=== PATIENT | male | born 1955 | race Two or more races ===

== ENCOUNTER 2024-02-19 09:45 | Outpatient (OUT) | payer BC, SELFPAY ==
--- NOTE | 2024-02-19 | XR_ITS ---
[address] [address] Patient Name: CIARA HAMPTON MRN: [id number] date: 1955 Sex: M Assigned Patient Location: Current Patient Location: Accession/Order Number: [id number] Exam Date: 02/19/2024 10:20 Report Date: 02/19/2024 11:36 At the request of: CINTHIA JOE Procedure: XR ankle ROBERTO min 3V EXAMINATION: XR ankle ROBERTO min 3V, XR foot ROBERTO min 3V HISTORY: BILATERAL ANKLE PAIN COMPARISON: 01/24/2023 FINDINGS: RIGHT FINDINGS: BONES: No acute fracture or dislocation. Corticated bone fragment inferior to the lateral malleolus, remote injury. Prominent os trigonum. Mild enthesopathic spurring plantar calcaneus. Mild degenerative changes of the midfoot with marginal osteophyte formation SOFT TISSUES: Negative. No visible soft tissue swelling. OTHER: Negative. 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 Severe degenerative changes of the midfoot and hindfoot with pes planus. Plantar displacement of the talus in relation to the calcaneus. Bony remodeling. Heterotopic ossification along the posterior joint space. SOFT TISSUES: Extensive soft tissue swelling OTHER: Negative. 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
--- NOTE | 2024-02-19 | XR_ITS ---
[address] [address] Patient Name: CIARA HAMPTON MRN: [id number] date: 1955 Sex: M Assigned Patient Location: Current Patient Location: Accession/Order Number: [id number] Exam Date: 02/19/2024 10:20 Report Date: 02/19/2024 11:36 At the request of: CINTHIA JOE Procedure: XR foot ROBERTO min 3V EXAMINATION: XR ankle ROBERTO min 3V, XR foot ROBERTO min 3V HISTORY: BILATERAL ANKLE PAIN COMPARISON: 01/24/2023 FINDINGS: RIGHT FINDINGS: BONES: No acute fracture or dislocation. Corticated bone fragment inferior to the lateral malleolus, remote injury. Prominent os trigonum. Mild enthesopathic spurring plantar calcaneus. Mild degenerative changes of the midfoot with marginal osteophyte formation SOFT TISSUES: Negative. No visible soft tissue swelling. OTHER: Negative. 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 Severe degenerative changes of the midfoot and hindfoot with pes planus. Plantar displacement of the talus in relation to the calcaneus. Bony remodeling. Heterotopic ossification along the posterior joint space. SOFT TISSUES: Extensive soft tissue swelling OTHER: Negative. 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
== END 2024-02-19 09:46 | disposition home or self-care (01) ==
LOC: WC 09:45 → EC 10:12
PROVIDERS: Visit Provider Podiatrist Foot & Ankle Surgery
DX: M25.571 Pain in right ankle and joints of right foot (principal); M25.572 Pain in left ankle and joints of left foot
CPT/HCPCS: 73610; 73630

== ENCOUNTER 2024-02-25 12:58 | Outpatient (OUT) | payer BC, SELFPAY ==
--- NOTE | 2024-02-25 13:17 | CT_ITS ---
[address] [address] Patient Name: CIARA HAMPTON MRN: [id number] date: 1955 Sex: M Assigned Patient Location: CT Current Patient Location: CT Accession/Order Number: [id number] Exam Date: 02/25/2024 13:08 Report Date: 02/25/2024 14:30 At the request of: CINTHIA JOE Procedure: CT ankle LT wo con EXAMINATION: CT ankle LT wo con HISTORY: left charcot neuroarthropathy,valgus deformity ankleand foot COMPARISON: Plain x-ray 02/19/2024 TECHNIQUE: Multi-planar CT images were created without IV contrast. Dose reduction techniques were achieved by using automated exposure control and/or adjustment of mA and/or kV according to patient size and/or use of iterative reconstruction technique. FINDINGS: BONES: Marked degenerative changes of the foot and ankle with diffuse lytic changes of the distal fibula and talocalcaneal joints. Bony remodeling of the midfoot most significant at the navicular. There is plantar rotation of the navicular in relation to the calcaneus. Marked joint space narrowing/collapse. Moderate degenerative changes of the knee with joint space narrowing marginal osteophyte formation. Fragmented anterior tibial tubercle consistent with chronic apophysitis . Amputation of the foot along the first second and third metatarsal heads. SOFT TISSUES: Marked diffuse soft tissue swelling. Vascular calcifications. EFFUSION: Large ankle joint effusion extending into the lateral tendon sheaths OTHER: Negative. CT/CT ankle LT wo con IMPRESSION: Severe degenerative changes of the midfoot and hindfoot consistent with known neuropathic osteoarthropathy Marked soft tissue swelling, joint effusion and vascular calcifications Electronically authenticated by: FRANCIS MILAN Date: 02/25/2024 14:30
== END 2024-02-25 12:59 | disposition home or self-care (01) ==
LOC: CT 12:58
PROVIDERS: Visit Provider Podiatrist Foot & Ankle Surgery
DX: M14.672 Charcot's joint, left ankle and foot (principal); M21.072 Valgus deformity, not elsewhere classified, left ankle; M25.472 Effusion, left ankle
CPT/HCPCS: 73700